=== PATIENT | male | born 1985 | race Asian ===

== ENCOUNTER 2020-09-10 20:52 | Emergency (ER) | payer OTHER ==
[2020-09-10] MEDS ORDERED: LIDOCAINE 1% 2 ML VIAL MC ONE ×3 (21:36→21:43)
[2020-09-10] MEDS ORDERED: cefTRIAXone 500 MG VIAL IM STA (21:36)
[2020-09-10 21:39] LABS: BILIRUBIN,URINE NEGATIVE (NEGATIVE); GLUCOSE, URINE (UA) NEGATIVE (NEGATIVE); KETONES,URINE (UA) NEGATIVE (NEGATIVE); LEUKOCYTE ESTERASE, URINE NEGATIVE (NEGATIVE); NITRITE,URINE NEGATIVE (NEGATIVE); OCCULT BLOOD,URINE SMALL (NEGATIVE); PROTEIN,URINE NEGATIVE (NEGATIVE); UROBILINOGEN,URINE 0.2 (NORMAL) E.U./dL (NORMAL)
[2020-09-10 21:40] LABS: CLARITY,URINE CLEAR (CLEAR)
--- NOTE | 2020-09-10 21:41 | ED Physician Documentation ---
History of Present Illness - Stated complaint Stated Complaint: SORE THROAT - Chief complaint Chief Complaint: Heent - Additonal information Additional information: 35-year-old male presents the emergency department requesting STD screening and treatment. He endorses that he returned from vacation 3 days ago and has had dysuria since. While on vacation he did engage with unprotected sex with both men and women. He does take Truvada for HIV prophylaxis but has never been diagnosed as HIV positive. He denies penile discharge. No fevers no abdominal pain, no nausea or vomiting. He also endorses a mild sore throat without exudate. Review of Systems Constitutional: denies: Fever, Chills Throat: reports: Sore throat Cardiac: denies: Chest pain / pressure, Palpitations GI: reports: Reviewed and negative : reports: Dysuria, Other (Denies penile discharge or lesions). denies: Unable to Void, Incontinent Skin: reports: Reviewed and negative Musculoskeletal: reports: Reviewed and negative PD PAST MEDICAL HISTORY - Present Medications Home Medications: Ambulatory Orders Medication Instructions Recorded Confirmed Doxycycline Hyclate 100 mg PO BID #14 09/10/20 Emtricitabine/Tenofovir [Truvada 1 tab PO DAILY 09/10/20 09/10/20 100 mg-150 mg Tablet] Emtricitabine/Tenofovir [Truvada 1 each PO DAILY #30 tablet 09/10/20 200 mg-300 mg Tablet] - Allergies Allergies/Adverse Reactions: Allergies Allergy/AdvReac Type Severity Reaction Status Date / Time No Known Drug Allergies Allergy Verified 09/10/20 20:59 - Social History Does the pt smoke?: No Smoking Status: Never smoker PD ED PE NORMAL - General General: Alert and oriented X 3, No acute distress - HEENT HEENT: Atraumatic, EOMI, Ears normal, Moist mucous membranes, Pharynx benign - Neck Neck: Supple, no meningeal sign, No adenopathy - Cardiac Cardiac: RRR, No murmur - Respiratory Respiratory: No respiratory distress - Male Male : Pt declined - Back Back: No CVA TTP, No spinal TTP Results - Vitals Vitals: Vital Signs - 24 hr 09/10/20 21:00 Temperature 37.0 C Heart Rate 86 Respiratory 18 Rate Blood Pressure 156/96 H O2 Saturation 100 Oxygen O2 Source Room air PD MEDICAL DECISION MAKING - ED course Complexity details: reviewed results, re-evaluated patient, d/w patient ED course: 35-year-old male presents emergency department requesting his screening and empiric treatment for suspected STD. He recently returned from vacation where he engaged in unprotected sex with both men and women. He is on Truvada prophylaxis but has no history of HIV. His urine shows a small amount of blood but no other signs of infection. Gonorrhea chlamydia is pending. Here in the emergency department he was given 500 mg of ceftriaxone x1 as well as a prescription for 1 week of doxycycline. He did request his Truvada prescription be refilled which I have accommodated. Emergent return precautions were discussed. 2200: I was notified that the patient developed an itchy throat after receiving the ceftriaxone. 50 mg of Benadryl was ordered IM. He is unlabored alert well- appearing with no dyspnea tongue lip swelling. No hives are noted. Departure - Departure Disposition: Home, Self Care Clinical Impression: Screening for STD (sexually transmitted disease) Condition: Stable Record reviewed to determine appropriate education?: Yes Prescriptions: Doxycycline Hyclate 100 mg PO BID #14 Emtricitabine/Tenofovir [Truvada 200 mg-300 mg Tablet] 1 each PO DAILY #30 tablet Comments: Marquise we are treating you today as though you could have contracted gonorrhea or chlamydia. You were given a one-time injection of ceftriaxone and you are to fill the prescription for the doxycycline and begin taking twice daily for the next 7 days. I have refilled your Truvada. It is important that you continue to follow-up for routine HIV screening with your primary care provider. We will notify you if your screening for chlamydia or gonorrhea is positive. It is important to always continue safe sex practices with new partners until you know your screening status. If you feel that your symptoms are not improving please return immediately to the ER.
[2020-09-10] MEDS ORDERED: cefTRIAXone 250 MG VIAL IM STA ×2 (21:43)
[2020-09-10 21:57] LABS: RBC,URINE 0-5 /HPF (0-5); SQUAMOUS EPITHELIAL CELL,UR NONE SEEN (<= Few); WBC,URINE 0-3 /HPF (0-3)
[2020-09-10 21:58] LABS: BACTERIA,URINE None Seen /HPF (None Seen)
[2020-09-10] MEDS ORDERED: diphenhydrAMINE INJ 50 MG/ML VIAL IM STA (22:08)
[2020-09-10 22:28] VITALS: BP 130/88
[2020-09-11 20:19] LABS: NEISSERIA GONORRHOEAE DNA NEGATIVE (NEGATIVE)
[2020-09-11 20:25] LABS: CHLAMYDIA TRACHOMATIS DNA POSITIVE (NEGATIVE)
== END 2020-09-10 22:27 | disposition home or self-care (01) ==
LOC: ED 20:52
DX: Z20.2 Contact with and (suspected) exposure to infections with a predominantly sexual mode of transmission (principal)
CPT/HCPCS: 81001; 87491; 87591; 96372; 99283; 99284; J1200; 81003; 87086; 87661